=== PATIENT | female | born 1995 | race African-American/Black ===

== ENCOUNTER 2025-08-08 02:20 | Emergency (ER) | payer MEDICAID ==
[~2025-08-08] VITALS: Ht 172.7 cm; Wt 90.0 kg
[2025-08-08 02:23] VITALS: O2SAT 99
[2025-08-08] MEDS ORDERED: AMOX1TAB16 MT (03:10)
[2025-08-08] MEDS ORDERED: NAPR-1176 MT (03:10)
[2025-08-08] MEDS: KETOROLAC 15MG/ML VIAL IM ONE (04:23)
[2025-08-08 04:25] VITALS: BP 141/92; PULSE 89; RESP 18; TEMP 36.9; O2SAT 100
== END 2025-08-08 04:30 | disposition home or self-care (01) ==
LOC: ER 02:20
DX: K04.7 Periapical abscess without sinus (principal); R68.83 Chills (without fever); F12.90 Cannabis use, unspecified, uncomplicated; Z79.1 Long term (current) use of non-steroidal anti-inflammatories (NSAID)
CPT/HCPCS: 99283; 81025; 96372; J1885